=== PATIENT | female | born 1985 | race Caucasian/White ===

== ENCOUNTER 2021-09-27 12:42 | Inpatient (IN) | payer OTHER ==
[2021-09-27 13:06] LABS: BILIRUBIN NEGATIVE (NEGATIVE); BLOOD NEGATIVE Ery/uL (NEGATIVE); CLARITY CLEAR (CLEAR); COLOR YELLOW (YELLOW); GLUCOSE (U) NORMAL (NORMAL); LEUKOCYTES NEGATIVE Leu/uL (NEGATIVE); NITRITE NEGATIVE (NEGATIVE); PROTEIN NEGATIVE (NEGATIVE); UROBILINOGEN 0.2 mg/dL (0.2-1.0); pH 6.5 (5.0-9.0)
[2021-09-27 13:34] LABS: HCT 36.4 % (37.0-47.0); HGB 12.2 g/dl (12.5-16.0); MCH 29.8 pg (25.0-31.0); MCHC 33.5 g/dL (32.0-36.0); MPV 10.7 fL (6.0-9.5); RBC 4.09 M/uL (4.20-5.40); RDW 13.2 % (11.5-14.0); WBC 7.8 K/uL (4.0-10.5)
[2021-09-27 14:30] LABS: ALBUMIN 2.5 g/dL (3.4-5.0); BILIRUBIN - TOTAL 0.2 mg/dL (0.2-1.0); BUN/CREAT RATIO (CALC) 23.4 RATIO; CREATININE 0.47 mg/dL (0.51-0.95); GLOBULIN (CALCULATION) 3.9 g/dL; POTASSIUM 3.9 mmol/L (3.5-5.1); TOTAL PROTEIN 6.4 g/dL (6.4-8.2)
[2021-09-27 14:41] LABS: PROTEIN:CREATININE 0.23 RATIO; URINE CREATININE 35.75 mg/dL (29.00-226.00); URINE TOTAL PROTEIN-RANDOM 8.3 mg/dL (<11.9)
== END 2021-09-27 17:50 | disposition home or self-care (01) | DRG 833 ==
LOC: FOB 12:42 → FOD 12:42 → FOB 12:50
PROVIDERS: ADMIT Obstetrics & Gynecology
DX: O16.3 Unspecified maternal hypertension, third trimester (principal); O24.415 Gestational diabetes mellitus in pregnancy, controlled by oral hypoglycemic drugs; O99.820 Streptococcus B carrier state complicating pregnancy; Z20.822 Contact with and (suspected) exposure to COVID-19; O09.513 Supervision of elderly primigravida, third trimester; Z3A.36 36 weeks gestation of pregnancy; Z79.82 Long term (current) use of aspirin; Z79.899 Other long term (current) drug therapy
CPT/HCPCS: 36415; 80053; 81003; 82570; 84156; 84550; 86850; 86900; 86901; U0002

== ENCOUNTER 2021-10-10 02:02 | Inpatient (IN) | payer OTHER ==
[~2021-10-10] VITALS: Ht 165.1 cm; Wt 89.4 kg
[2021-10-10 03:48] LABS: HCT 34.3 % (37.0-47.0); HGB 11.5 g/dl (12.5-16.0); MCH 29.9 pg (25.0-31.0); MCHC 33.5 g/dL (32.0-36.0); MCV 89.3 fL (78.0-100.0); MPV 11.3 fL (6.0-9.5); RBC 3.84 M/uL (4.20-5.40); RDW 13.9 % (11.5-14.0); WBC 7.6 K/uL (4.0-10.5)
[2021-10-10 03:56] LABS: AMPHETAMINES NEGATIVE (NEGATIVE); BARBITURATES NEGATIVE (NEGATIVE); ECSTASY (MDMA) POSITIVE (NEGATIVE); MARIJUANA (THC) NEGATIVE (NEGATIVE); METHADONE NEGATIVE (NEGATIVE); OPIATES NEGATIVE (NEGATIVE); OXYCODONE NEGATIVE (NEGATIVE)
[2021-10-10 04:12] LABS: ALBUMIN 2.5 g/dL (3.4-5.0); BILIRUBIN - TOTAL 0.2 mg/dL (0.2-1.0); BUN/CREAT RATIO (CALC) 26.3 RATIO; CREATININE 0.57 mg/dL (0.51-0.95); GLOBULIN (CALCULATION) 3.7 g/dL; POTASSIUM 3.8 mmol/L (3.5-5.1); TOTAL PROTEIN 6.2 g/dL (6.4-8.2)
[2021-10-10 19:40] LABS: HCT 29.5 % (37.0-47.0); HGB 9.8 g/dl (12.5-16.0); MCH 30.1 pg (25.0-31.0); MCHC 33.2 g/dL (32.0-36.0); MCV 90.5 fL (78.0-100.0); MPV 10.8 fL (6.0-9.5); RBC 3.26 M/uL (4.20-5.40); WBC 17.8 K/uL (4.0-10.5)
[2021-10-11 06:09] LABS: HBSAG SCREEN Negative (Negative)
[2021-10-11 07:37] LABS: HCT 23.9 % (37.0-47.0); HGB 7.8 g/dL (12.5-16.0)
[2021-10-11 08:06] LABS: BASOPHIL 0.2 % (0-2); EOSINOPHIL 0.2 % (0-5); HCT 23.9 % (37.0-47.0); HGB 7.9 g/dl (12.5-16.0); LYMPHOCYTE 10.2 % (15-48); MCHC 33.1 g/dL (32.0-36.0); MCV 90.9 fL (78.0-100.0); MONOCYTE 7.5 % (0-12); MPV 11.2 fL (6.0-9.5); NEUTROPHIL 81.3 % (41-80); NRBC 0; PLT 129 K/uL (150-400); RBC 2.63 M/uL (4.20-5.40); RDW 14.4 % (11.5-14.0); WBC 12.9 K/uL (4.0-10.5)
[2021-10-12 01:13] LABS: BASOPHIL 0.3 % (0-2); EOSINOPHIL 0.9 % (0-5); HCT 31.3 % (37.0-47.0); LYMPHOCYTE 16.3 % (15-48); MCH 29.2 pg (25.0-31.0); MCHC 33.2 g/dL (32.0-36.0); MCV 87.9 fL (78.0-100.0); MONOCYTE 6.7 % (0-12); MPV 10.2 fL (6.0-9.5); NRBC 0; PLT 106 K/uL (150-400); RBC 3.56 M/uL (4.20-5.40); RDW 14.9 % (11.5-14.0); WBC 8.9 K/uL (4.0-10.5)
[2021-10-12 01:24] LABS: HGB 10.4 g/dl (12.5-16.0)
[2021-10-12 01:31] LABS: BILIRUBIN - TOTAL 0.2 mg/dL (0.2-1.0); BUN/CREAT RATIO (CALC) 17.5 RATIO; CREATININE 0.63 mg/dL (0.51-0.95); GLOBULIN (CALCULATION) 3.1 g/dL; POTASSIUM 3.7 mmol/L (3.5-5.1); TOTAL PROTEIN 5.1 g/dL (6.4-8.2)
[2021-10-12 17:37] LABS: HCT 32.5 % (37.0-47.0); HGB 10.8 g/dl (12.5-16.0); MCH 29.6 pg (25.0-31.0); MCHC 33.2 g/dL (32.0-36.0); MPV 10.1 fL (6.0-9.5); RBC 3.65 M/uL (4.20-5.40); WBC 8.7 K/uL (4.0-10.5)
[2021-10-14 06:40] LABS: HCT 32.9 % (37.0-47.0); HGB 10.8 g/dl (12.5-16.0); MCH 29.8 pg (25.0-31.0); MCHC 32.8 g/dL (32.0-36.0); MCV 90.9 fL (78.0-100.0); RBC 3.62 M/uL (4.20-5.40); RDW 14.9 % (11.5-14.0); WBC 6.6 K/uL (4.0-10.5)
== END 2021-10-14 14:47 | disposition home or self-care (01) | DRG 797 ==
LOC: FOB 02:02
PROVIDERS: Specialist; ADMIT Obstetrics & Gynecology
PROC: 10E0XZZ Delivery of Products of Conception, External Approach (ICD-10-PCS; principal; 2021-10-10)
PROC: 0KQM0ZZ Repair Perineum Muscle, Open Approach (ICD-10-PCS; 2021-10-10)
PROC: 3E0P7VZ Introduction of Hormone into Female Reproductive, Via Natural or Artificial Opening (ICD-10-PCS; 2021-10-10)
PROC: 10D17Z9 Manual Extraction of Products of Conception, Retained, Via Natural or Artificial Opening (ICD-10-PCS; 2021-10-10)
PROC: 0W8NXZZ Division of Female Perineum, External Approach (ICD-10-PCS; 2021-10-10)
PROC: 10907ZC Drainage of Amniotic Fluid, Therapeutic from Products of Conception, Via Natural or Artificial Opening (ICD-10-PCS; 2021-10-10)
PROC: 30233N1 Transfusion of Nonautologous Red Blood Cells into Peripheral Vein, Percutaneous Approach (ICD-10-PCS; 2021-10-11)
PROC: 30233N1 Transfusion of Nonautologous Red Blood Cells into Peripheral Vein, Percutaneous Approach (ICD-10-PCS; 2021-10-11)
PROC: 30233N1 Transfusion of Nonautologous Red Blood Cells into Peripheral Vein, Percutaneous Approach (ICD-10-PCS; 2021-10-11)
PROC: 10D18ZZ Extraction of Products of Conception, Retained, Via Natural or Artificial Opening Endoscopic (ICD-10-PCS; 2021-10-13)
DX: O10.92 Unspecified pre-existing hypertension complicating childbirth (principal); D62 Acute posthemorrhagic anemia; Z37.0 Single live birth; O86.12 Endometritis following delivery; O72.0 Third-stage hemorrhage; O70.1 Second degree perineal laceration during delivery; O34.13 Maternal care for benign tumor of corpus uteri, third trimester; D25.9 Leiomyoma of uterus, unspecified; O24.425 Gestational diabetes mellitus in childbirth, controlled by oral hypoglycemic drugs; O99.824 Streptococcus B carrier state complicating childbirth; O90.81 Anemia of the puerperium; Z3A.38 38 weeks gestation of pregnancy; Z79.84 Long term (current) use of oral hypoglycemic drugs; Z79.899 Other long term (current) drug therapy; Z67.91 Unspecified blood type, Rh negative
CPT/HCPCS: 36415; 76856; 80053; 80170; 80305; 82009; 83605; 84112; 85014; 85018; 85025; 85460; 85461; 86850; 86900; 86901; 86922; 87040; 87340; 94010; J0595; J0696; J1580; J2250; J2405; J2540; J2590; J2704; J2790; J2916; J3010; J7050; J7120; J7121; P9016